=== PATIENT | female | born 1965 | race Caucasian/White ===

== ENCOUNTER 2016-06-28 11:36 | Emergency (ER) | payer OTHER ==
[~2016-06-28] VITALS: Ht 172.7 cm; Wt 97.9 kg
[~2016-06-28 11:36] MED LIST: LOPRESSOR25 MG PO; MECLIZINE HCL25 MG PO
[2016-06-28] MEDS ORDERED: PREDNISONE20 MG PO (16:45)
[2016-06-28] MEDS ORDERED: FLEXERIL10 MG PO (16:45)
[2016-06-28] MEDS ORDERED: PERCOCET 5/31 TABLET PO (16:45)
[2016-06-28 16:52] VITALS: BP 132/63
== END 2016-06-28 17:02 | disposition home or self-care (01) ==
LOC: EME 11:36
DX: M79.602 Pain in left arm (principal)
CPT/HCPCS: 93971; 99281; 99284; J1885; J2270

== ENCOUNTER 2016-09-04 16:42 | Emergency (ER) | payer OTHER ==
[~2016-09-04] VITALS: Ht 172.7 cm; Wt 61.6 kg
[~2016-09-04 16:42] MED LIST changes: +FLEXERIL10 MG PO; +PERCOCET 5/31 TABLET PO; +PREDNISONE20 MG PO
[2016-09-04] MEDS ORDERED: TRAMADOL HCL50 MG PO (17:59)
[2016-09-04] MEDS ORDERED: CLINDAMYCIN HC150 MG PO (17:59)
[2016-09-04 18:19] VITALS: BP 148/86
== END 2016-09-04 18:01 | disposition home or self-care (01) ==
LOC: EME 16:42
DX: K02.9 Dental caries, unspecified (principal); K04.7 Periapical abscess without sinus
CPT/HCPCS: 99281; 99283

== ENCOUNTER 2016-10-18 10:10 | Emergency (ER) | payer OTHER ==
[~2016-10-18] VITALS: Ht 172.7 cm; Wt 60.9 kg
[~2016-10-18 10:10] MED LIST changes: +CLINDAMYCIN HC150 MG PO; +TRAMADOL HCL50 MG PO
[2016-10-18] MEDS ORDERED: HYDROCHLOROTHIA25 MG PO (10:48)
[2016-10-18] MEDS ORDERED: METOPROLOL TAR100 MG PO (10:48)
[2016-10-18 11:35] LABS: EOSINOPHIL (%) 0.6 % (0-5); EOSINOPHIL COUNT 0.1 K/uL (0-0.3); HEMATOCRIT 44.1 % (36.0-46.0); IMMATURE GRANULOCYTE (%) 0.4 % (0.0-0.7); INSTRUMENT ABS NEUTROPHIL CT 5.8 K/uL; LYMPHOCYTE COUNT 1.2 K/uL (1.0-2.8); MCH 30.6 PG (29.0-34.0); MCHC 34.2 G/DL (30.0-36.0); MCV 89.5 FL (83-99); MEAN PLAT.VOLUME 9.7 uM^3 (9.5-12.4); MONOCYTE (%) 10.9 % (3-12); MONOCYTE COUNT 0.9 K/uL (0-0.8); NEUTROPHIL (%) 73.1 % (45-76); NEUTROPHIL COUNT 5.8 K/uL (1.8-6.4); PLATELET COUNT 223 K/uL (156-360); RBC DIS.WIDTH-CV 12.4 % (11.8-14.6); RBC DIS.WIDTH-SD 40.8 % (39-53); RED BLOOD COUNT 4.93 M/uL (3.80-5.20)
[2016-10-18 11:40] LABS: ADD MIUA? YES; BILIRUBIN NEGATIVE; BLOOD MODERATE; COLOR YELLOW ((YELLOW)); GLUCOSE (STRIP) NEGATIVE; KETONES 5; LEUKOCYTES NEGATIVE; NITRITE NEGATIVE; PROTEIN (STRIP) NEGATIVE; SPECIFIC GRAVITY 1.005 (1.000-1.030); UROBILINOGEN 0.2 MG/DL (0.2-1.0)
[2016-10-18 11:50] LABS: BACTERIA RARE /HPF; EPITHELIAL CELLS RARE /HPF; HYALINE CASTS 0-5 /LPF; MUCUS TRACE /LPF; WHITE BLOOD CELLS 0-5 /HPF (0-5)
[2016-10-18 13:01] LABS: CHLORIDE 107 mEq/L (99-109); POTASSIUM 3.6 mEq/L (3.7-5.4); SODIUM 142 mEq/L (136-147)
[2016-10-18 13:04] LABS: GLUCOSE 75 mg/dL (70-99)
[2016-10-18 13:05] LABS: ANION GAP 9 MEQ/L (2-14)
[2016-10-18 13:06] LABS: TOTAL BILIRUBIN 0.5 mg/dL (0.0-1.0)
[2016-10-18 13:07] LABS: ALKALINE PHOSPHATASE 58 IU/L (3-129); GFR ESTIMATE (CALCULATED) > 59 mL/min/
[2016-10-18 13:08] LABS: UREA NITROGEN (BUN) 8 mg/dL (9-23)
[2016-10-18 13:11] LABS: LIPASE 6 U/L (1.0-51.0)
[2016-10-18] MEDS ORDERED: FLAGYL500 MG PO (14:40)
[2016-10-18] MEDS ORDERED: BENTYL20 MG PO (14:40)
[2016-10-18] MEDS ORDERED: ZOFRAN ODT4 MG PO (14:40)
[2016-10-18 14:54] VITALS: BP 122/67
== END 2016-10-18 15:00 | disposition home or self-care (01) ==
LOC: EME 10:10
PROVIDERS: Physician Assistant
DX: A04.7 Enterocolitis due to Clostridium difficile (principal); R11.2 Nausea with vomiting, unspecified; G43.909 Migraine, unspecified, not intractable, without status migrainosus; I10 Essential (primary) hypertension; I34.9 Nonrheumatic mitral valve disorder, unspecified; F17.200 Nicotine dependence, unspecified, uncomplicated; R10.2 Pelvic and perineal pain
CPT/HCPCS: 74177; 80053; 81003; 83605; 83690; 85025; 87493; 87506; 99281; 99285; J0500; J1885; J2405; J7030

== ENCOUNTER 2017-06-27 16:51 | Observation (INO) | payer OTHER ==
[~2017-06-27] VITALS: Ht 172.7 cm; Wt 65.5 kg
[~2017-06-27 16:51] MED LIST changes: +BENTYL20 MG PO; +FLAGYL500 MG PO; +HYDROCHLOROTHIA25 MG PO; +METOPROLOL TAR100 MG PO; +ZOFRAN ODT4 MG PO
[2017-06-27 17:11] LABS: HEMATOCRIT 41.4 % (36.0-46.0); HEMOGLOBIN 14.9 G/DL (11.9-15.5); MCH 32.3 PG (29.0-34.0); MCV 89.8 FL (83-99); PLATELET COUNT 179 K/uL (156-360); RBC DIS.WIDTH-CV 11.9 % (11.8-14.6); RBC DIS.WIDTH-SD 38.8 % (39-53); RED BLOOD COUNT 4.61 M/uL (3.80-5.20); WHITE BLOOD COUNT 7.8 K/uL (4.1-10.2)
[2017-06-27 17:20] LABS: CHLORIDE 105 mEq/L (99-109); POTASSIUM 3.2 mEq/L (3.7-5.4); SODIUM 142 mEq/L (136-147)
[2017-06-27 17:22] LABS: GLUCOSE 86 mg/dL (70-99)
[2017-06-27 17:26] LABS: CREATININE 0.7 mg/dL (0.6-1.3); GFR ESTIMATE (CALCULATED) > 59 mL/min/
[2017-06-27 17:27] LABS: UREA NITROGEN (BUN) 13 mg/dL (9-23)
[2017-06-27 17:33] LABS: TROP-I INTERPRETATION NEGATIVE; TROPONIN-I < 0.01 ng/mL (0.0-0.30)
[2017-06-27] MEDS ORDERED: LOSARTAN POTASS25 MG PO (19:50)
[2017-06-27] MEDS ORDERED: ADULT MULTIVI200 MCG PO (19:51)
[2017-06-27] MEDS ORDERED: ADVIL,NUPRIN,M200 MG PO (19:52)
[2017-06-27] MEDS ORDERED: EQUATE BOTH EYES (19:54)
[2017-06-27 21:00] LABS: HDL CHOLESTEROL 45 MG/DL (Desirable>=50); LDL CHOLESTEROL 119 mg/dL (Desirable<100); TOTAL CHOLESTEROL 181 mg/dL (Desirable<200); TRIGLYCERIDES 83 MG/DL (Normal: <150)
[2017-06-27 21:01] LABS: NON-HDL CHOLESTEROL 136 mg/dL (Desirable<160)
[2017-06-27 21:10] VITALS: BP 171/88
[2017-06-28 00:01] LABS: TROP-I INTERPRETATION NEGATIVE; TROPONIN-I < 0.01 ng/mL (0.0-0.30)
[2017-06-28 00:41] VITALS: BP 143/73
[2017-06-28 05:06] VITALS: BP 140/76
[2017-06-28 07:04] VITALS: BP 161/78
[2017-06-28 07:20] LABS: HEMATOCRIT 43.2 % (36.0-46.0); HEMOGLOBIN 14.7 G/DL (11.9-15.5); MCH 31.6 PG (29.0-34.0); MCV 92.9 FL (83-99); PLATELET COUNT 177 K/uL (156-360); RBC DIS.WIDTH-CV 12.1 % (11.8-14.6); RBC DIS.WIDTH-SD 41.8 % (39-53); RED BLOOD COUNT 4.65 M/uL (3.80-5.20); WHITE BLOOD COUNT 6.8 K/uL (4.1-10.2)
[2017-06-28 07:38] LABS: TROP-I INTERPRETATION NEGATIVE; TROPONIN-I < 0.01 ng/mL (0.0-0.30)
[2017-06-28 07:47] LABS: ALBUMIN 4.1 G/DL (3.2-4.8); ALKALINE PHOSPHATASE 65 IU/L (3-129); ALT (GPT) 10 IU/L (3-49); AST (GOT) 13 IU/L (2-34); CHLORIDE 111 MEQ/L (99-109); CREATININE 0.8 MG/DL (0.6-1.3); GFR ESTIMATE (CALCULATED) > 59 mL/min/; GLUCOSE 102 mg/dL (70-99); SODIUM 144 MEQ/L (136-147); TOTAL BILIRUBIN 0.4 MG/DL (0.0-1.0); TOTAL PROTEIN 6.2 G/DL (6.4-8.3)
[2017-06-28 07:48] LABS: POTASSIUM 4.1 MEQ/L (3.7-5.4); UREA NITROGEN (BUN) 22 mg/dL (9-23)
[2017-06-28 11:05] VITALS: BP 147/78
[2017-06-28 16:03] VITALS: BP 146/81
[2017-06-28 18:56] VITALS: BP 156/80
[2017-06-29 00:18] VITALS: BP 135/73
[2017-06-29 03:47] VITALS: BP 171/81
[2017-06-29 06:41] LABS: BASOPHIL (%) 0.3 % (0-1); EOSINOPHIL (%) 5.1 % (0-5); EOSINOPHIL COUNT 0.3 K/uL (0-0.3); HEMATOCRIT 42.8 % (36.0-46.0); HEMOGLOBIN 14.7 G/DL (11.9-15.5); IMMATURE GRANULOCYTE (%) 0.3 % (0.0-0.7); LYMPHOCYTE (%) 32.4 % (15-42); LYMPHOCYTE COUNT 1.9 K/uL (1.0-2.8); MCH 31.6 PG (29.0-34.0); MCHC 34.3 G/DL (30.0-36.0); MONOCYTE (%) 9.1 % (3-12); MONOCYTE COUNT 0.5 K/uL (0-0.8); NEUTROPHIL (%) 52.8 % (45-76); NEUTROPHIL COUNT 3.1 K/uL (1.8-6.4); PLATELET COUNT 160 K/uL (156-360); RBC DIS.WIDTH-CV 11.9 % (11.8-14.6); RBC DIS.WIDTH-SD 40.2 % (39-53); RED BLOOD COUNT 4.65 M/uL (3.80-5.20); WHITE BLOOD COUNT 5.8 K/uL (4.1-10.2)
[2017-06-29 07:16] LABS: CHLORIDE 108 MEQ/L (99-109); CREATININE 0.6 MG/DL (0.6-1.3); GFR ESTIMATE (CALCULATED) > 59 mL/min/; GLUCOSE 93 mg/dL (70-99); POTASSIUM 3.8 MEQ/L (3.7-5.4); SODIUM 141 MEQ/L (136-147); UREA NITROGEN (BUN) 20 mg/dL (9-23)
[2017-06-29 08:01] VITALS: BP 165/82
[2017-06-29 11:48] VITALS: BP 170/79
[2017-06-29] MEDS ORDERED: LOSARTAN POTASS50 MG PO (11:55)
[2017-06-29] MEDS ORDERED: NORVASC10 MG PO (11:55)
[2017-06-29 11:58] VITALS: BP 160/74
[2017-06-29 13:10] VITALS: BP 162/84
== END 2017-06-29 14:19 | disposition home or self-care (01) ==
LOC: EME 16:51 → EDOF 19:31 → 5WEST 19:31 → EDOF 19:31 → ENRESERV 19:33 → 5WEST 20:40
PROVIDERS: Emergency Medicine; Internal Medicine
DX: R07.9 Chest pain, unspecified (principal); I16.0 Hypertensive urgency; I10 Essential (primary) hypertension; E87.6 Hypokalemia; R00.1 Bradycardia, unspecified; F17.200 Nicotine dependence, unspecified, uncomplicated
CPT/HCPCS: 71046; 80048; 80053; 80061; 84484; 85025; 85027; 93005; 99281; 99285; G0378; J1644; J1885; J2405

== ENCOUNTER 2017-07-02 06:40 | Emergency (ER) | payer OTHER ==
[~2017-07-02] VITALS: Ht 172.7 cm; Wt 62.1 kg
[~2017-07-02 06:40] MED LIST changes: +ADULT MULTIVI200 MCG PO; +ADVIL,NUPRIN,M200 MG PO; +EQUATE BOTH EYES; +LOSARTAN POTASS25 MG PO; +LOSARTAN POTASS50 MG PO; +NORVASC10 MG PO
[2017-07-02] MEDS ORDERED: AUGMENTIN875 MG PO (09:00)
[2017-07-02] MEDS ORDERED: PERCOCET 5/31 TABLET PO (09:09)
[2017-07-02 09:20] VITALS: BP 142/88
== END 2017-07-02 09:30 | disposition home or self-care (01) ==
LOC: EME 06:40
DX: K04.7 Periapical abscess without sinus (principal); K02.9 Dental caries, unspecified; I10 Essential (primary) hypertension; I34.1 Nonrheumatic mitral (valve) prolapse
CPT/HCPCS: 99281; 99283